=== PATIENT | female | born 1965 | race Caucasian/White ===

== ENCOUNTER 2017-04-20 23:48 | Observation (INO) | payer OTHER ==
[~2017-04-20] VITALS: Ht 170.2 cm; Wt 102.3 kg
[~2017-04-20 23:48] MED LIST: ADVA500A INH; ALBU1TAB2 PO; AMIO200T PO; ASPI81TA81; CARV3.12 PO; ENAL2.5T PO; HYDR-3533 PO; LEVO25TA4 PO; METF500T PO; SPIR25TA PO; SPIRCAP INH; TAMO20TA6 PO
[2017-04-21] VITALS (9 sets, daily range): BP systolic 106–138; BP diastolic 55–86; PULSE 68–80; RESP 14–20; TEMP 97.3–98.3; O2SAT 96–99
[2017-04-21] MEDS ORDERED: MAGN400T2 PO ×2 (00:11→17:14)
[2017-04-21] MEDS ORDERED: CHOL1CAP14 PO (00:11)
[2017-04-21] MEDS ORDERED: FERR325C PO (00:11)
[2017-04-21] MEDS ORDERED: ALBUAER3 INH (00:11)
[2017-04-21] MEDS ORDERED: SYMB160A INH (00:11)
[2017-04-21] MEDS ORDERED: CYAN1TAB24 (00:11)
[2017-04-21] MEDS ORDERED: SODIUM CHLORIDE 0.9% FLUSH 10 ML FLUSH IVF PRN (00:15)
[2017-04-21 00:57] LABS: AUTOMATED NEUTROPHIL # 5.9 TH/MM3 (1.8-7.7); BASOPHIL % 0.5 % (0.0-2.0); EOSINOPHIL # 0.2 TH/MM3 (0-0.4); EOSINOPHIL % 1.8 % (0.0-4.0); HEMATOCRIT 35.8 % (35.0-46.0); LYMPH % 30.2 % (9.0-44.0); LYMPHOCYTE # 2.9 TH/MM3 (1.0-4.8); MEAN CELL VOLUME 81.8 FL (80.0-100.0); MEAN CORPUSCULAR HEMOGLOBIN 26.1 PG (27.0-34.0); MEAN CORPUSCULAR HGB CONC 31.9 % (32.0-36.0); MONO % 7.4 % (0.0-8.0); NEUT % 60.1 % (16.0-70.0); PLATELET COUNT 246 TH/MM3 (150-450); RED BLOOD COUNT 4.38 MIL/MM3 (4.00-5.30); RED CELL DISTRIBUTION WIDTH 14.3 % (11.6-17.2); WHITE BLOOD COUNT 9.7 TH/MM3 (4.0-11.0)
[2017-04-21 00:59] LABS: HEMO FLAGS DIFF FINAL
[2017-04-21 01:08] LABS: CHLORIDE 103 MEQ/L (98-107); POTASSIUM 3.9 MEQ/L (3.5-5.1); SODIUM (NA) 137 MEQ/L (136-145)
[2017-04-21 01:11] LABS: ANION GAP 8 MEQ/L (5-15); BLOOD UREA NITROGEN 28 MG/DL (7-18); MAGNESIUM 1.2 MG/DL (1.5-2.5)
--- NOTE | 2017-04-21 01:12 | PD ---
HPI Chief Complaint: Syncope/Near-Syncope Time Seen by Provider: 00:06 Travel History International Travel<30 days: No Contact w/Intl Traveler<30days: No Traveled to known affect area: No History of Present Illness HPI 51-year-old female with a history of an AICD placed in July 2012 at [facility] arrives as the AICD discharged when she was at home just prior to ER arrival. Patient was in her kitchen and fell to the ground having lost consciousness for seconds. She complains of left ankle pain and left shoulder pain. She reports palpitations earlier in the day and some chest heaviness earlier in the day. At the time of ER evaluation she has no specific complaint. Denies change in medication recently. No recent illness reported. The patient does not know the brand or model of the AICD. 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 PFSH Past Medical History Hx Anticoagulant Therapy: Yes Asthma: Yes Cancer: Yes (RIGHT BREAST CANCER) Cardiac Catheterization: Yes Cardiovascular Problems: Yes Chemotherapy: Yes Cerebrovascular Accident: No Coronary Artery Disease: Yes Diabetes: Yes Diminished Hearing: No Glaucoma: No Genitourinary: No Hepatitis: No Hiatal Hernia: No Hypertension: No Musculoskeletal: No Neurologic: No Reproductive: No Respiratory: Yes Integumentary: Yes (BOIL I&D RIGHT BREAST) Immunizations Current: Yes Radiation Therapy: Yes (IN 2008) Thyroid Disease: No PNEUMOCCOCAL Vaccine (Year): 2 : 3 Para: 3 Past Surgical History Abdominal Surgery: No Cardiac Surgery: No Section: Yes (X 3) Coronary Artery Bypass Graft: Yes Ear Surgery: No Endocrine Surgery: No Eye Surgery: No Genitourinary Surgery: No Hysterectomy: No Mastectomy: Yes (CASSANDRA) Oral Surgery: Yes (T&A) Pacemaker: No Thoracic Surgery: No Tonsillectomy: Yes Other Surgery: Yes (CASSANDRA. MASTECTOMY IN 2008) Social History Alcohol Use: No Tobacco Use: No Substance Use: No Allergies-Medications (Allergen,Severity, Reaction): Coded Allergies: Penicillin (Verified Allergy, Severe, RASH, 04/21/17) Reported Meds & Prescriptions Reported Meds & Active Scripts Active Reported Symbicort Inh (Budesonide/Formoterol Fumarate) 160-4.5 Mcg/Act Aero 2 Puff INH Q12HR Proair Hfa 8.5 GM Inh (Albuterol Sulfate) 90 Mcg/Act Aer 2 Puff INH Q4-6H PRN 108 mcg/actuation B12 (Cyanocobalamin) 1,000 Mcg Tab D3 Maximum Strength (Cholecalciferol) 5,000 Unit Cap 1,000 Units PO DAILY Iron (Ferrous Sulfate) 325 Mg Cap 65 Mg PO DAILY Magnesium Oxide 400 Mg Tab 400 Mg PO DAILY Amiodarone (Amiodarone HCl) 200 Mg Tab 200 Mg PO DAILY Aspir-81 (Aspirin) 81 Mg Tabdr 81 DAILY Carvedilol 3.125 Mg Tab 3.125 Mg PO BID Enalapril (Enalapril Maleate) 2.5 Mg Tab 2.5 Mg PO DAILY Spironolactone 25 Mg Tab 25 Mg PO DAILY Tamoxifen (Tamoxifen Citrate) 20 Mg Tab 20 Mg PO DAILY Metformin (Metformin HCl) 500 Mg Tab 500 Mg PO TIDPC With meals Review of Systems Except as stated in HPI: all other systems reviewed are Neg General / Constitutional: No: Fever Physical Exam Narrative GENERAL: 51 yo F, NAD, speaking full sentences SKIN: Warm and dry. HEAD: Atraumatic. Normocephalic. EYES: Pupils equal and round. No scleral icterus. No injection or drainage. ENT: No nasal bleeding or discharge. Mucous membranes pink and moist. NECK: Trachea midline. No JVD. CARDIOVASCULAR: Regular rate and rhythm. Left anterior chest wall AICD packet non-tender without overlying skin changes. RESPIRATORY: No accessory muscle use. Clear to auscultation. Breath sounds equal bilaterally. GASTROINTESTINAL: Abdomen soft, non-tender, nondistended. Hepatic and splenic margins not palpable. MUSCULOSKELETAL: Extremities without clubbing, cyanosis, or edema. No obvious deformities. TTP L lateral malleolus NEUROLOGICAL: Awake and alert. No obvious cranial nerve deficits. Motor grossly within normal limits. Five out of 5 muscle strength in the arms and legs. Normal speech. PSYCHIATRIC: Appropriate mood and affect; insight and judgment normal. Data Data Last Documented VS Vital Signs Date Time Temp Pulse Resp B/P Pulse Ox O2 Delivery O2 Flow Rate FiO2 04/21/17 02:50 98.3 72 15 118/60 97 Room Air Orders Electrocardiogram (04/21/17 00:07) Basic Metabolic Panel (Bmp) (04/21/17 00:07) Complete Blood Count With Diff (04/21/17 00:07) Magnesium (Mg) (04/21/17 00:07) Ecg Monitoring (04/21/17 00:07) Iv Access Insert/Monitor (04/21/17 00:07) Oximetry (04/21/17 00:07) Oxygen Administration (04/21/17 00:07) Sodium Chloride 0.9% Flush (Ns Flush) (04/21/17 00:15) Chest, Single Ap (04/21/17 00:33) Foot, Complete ([id number]) (04/21/17 ) B-Type Natriuretic Peptide (04/21/17 01:18) Magnesium Oxide (Mag-Ox) (04/21/17 01:30) Alcohol (Ethanol) (04/21/17 00:47) Creatine Kinase (Cpk) (04/21/17 00:47) Troponin I (04/21/17 00:47) Place In Observation (04/21/17 ) Vital Signs (Adult) Q4H (04/21/17 03:38) Activity Oob With Assistance (04/21/17 03:38) Supervisor Cigar Processing / Telemetry .CONTINUOUS (04/21/17 03:38) Intake + Output WARREN.QSHIFT (04/21/17 03:38) Diet 1800 Ada Cons Carb (04/21/17 Breakfast) Sodium Chlor 0.9% 1000 Ml Inj (Ns 1000 M (04/21/17 03:38) Sodium Chloride 0.9% Flush (Ns Flush) (04/21/17 03:45) Sodium Chloride 0.9% Flush (Ns Flush) (04/21/17 09:00) Ondansetron Inj (Zofran Inj) (04/21/17 03:45) Comprehensive Metabolic Panel (04/22/17 06:00) Complete Blood Count With Diff (04/22/17 06:00) Troponin I (04/21/17 09:00) Troponin I (04/21/17 15:00) Scd Bilateral/Knee High WARREN.BID (04/21/17 03:38) Juan Jose Bilateral/Knee High WARREN.QSHIFT (04/21/17 03:38) Acetaminophen (Tylenol) (04/21/17 03:45) Acetamin-Hydrocod 325-5 Mg ([place] 5-325 (04/21/17 03:45) Morphine Inj (Morphine Inj) (04/21/17 03:45) Docusate Sodium-Senna (Brenna-Colace) (04/21/17 09:00) Magnesium Hydroxide Liq (Milk Of Magnesi (04/21/17 03:45) Sennosides (Senokot) (04/21/17 03:45) Bisacodyl Supp (Dulcolax Supp) (04/21/17 03:45) Admit Order (Ed Use Only) (04/21/17 03:38) Lactulose Liq (Lactulose Liq) (04/21/17 03:45) Consult Cardiology (04/21/17 ) Sodium Chlor 0.9% 1000 Ml Inj (Ns 1000 M (04/21/17 03:45) Albuterol Hfa Inh (Proair Hfa Inh) (04/21/17 03:45) Amiodarone (Cordarone) (04/21/17 09:00) Budeson-Formot 160-4.5 Mg Inh (Symbicort (04/21/17 09:00) Carvedilol (Coreg) (04/21/17 09:00) Magnesium Oxide (Mag-Ox) (04/21/17 09:00) Tamoxifen (Nolvadex) (04/21/17 09:00) Ferrous Sulfate (Ferrous Sulfate) (04/21/17 09:00) Labs Laboratory Tests Test 04/21/17 00:47 White Blood Count 9.7 TH/MM3 Red Blood Count 4.38 MIL/MM3 Hemoglobin 11.4 GM/DL Hematocrit 35.8 % Mean Corpuscular Volume 81.8 FL Mean Corpuscular Hemoglobin 26.1 PG Mean Corpuscular Hemoglobin 31.9 % Concent Red Cell Distribution Width 14.3 % Platelet Count 246 TH/MM3 Mean Platelet Volume 6.6 FL Neutrophils (%) (Auto) 60.1 % Lymphocytes (%) (Auto) 30.2 % Monocytes (%) (Auto) 7.4 % Eosinophils (%) (Auto) 1.8 % Basophils (%) (Auto) 0.5 % Neutrophils # (Auto) 5.9 TH/MM3 Lymphocytes # (Auto) 2.9 TH/MM3 Monocytes # (Auto) 0.7 TH/MM3 Eosinophils # (Auto) 0.2 TH/MM3 Basophils # (Auto) 0.0 TH/MM3 CBC Comment DIFF FINAL Differential Comment Sodium Level 137 MEQ/L Potassium Level 3.9 MEQ/L Chloride Level 103 MEQ/L Carbon Dioxide Level 26.0 MEQ/L Anion Gap 8 MEQ/L Blood Urea Nitrogen 28 MG/DL Creatinine 0.95 MG/DL Estimat Glomerular Filtration 62 ML/MIN Rate Random Glucose 208 MG/DL Calcium Level 8.6 MG/DL Magnesium Level 1.2 MG/DL Total Creatine Kinase 73 U/L Troponin I LESS THAN 0.02 NG/ML B-Type Natriuretic Peptide 135 PG/ML Ethyl Alcohol Level LESS THAN 3 MG/DL MDM Medical Decision Making Medical Screen Exam Complete: Yes Emergency Medical Condition: Yes Medical Record Reviewed: Yes Differential Diagnosis Arrhythmia, electrolyte imbalance, anemia, AICD parameter abnormality, fracture of the AICD wires Narrative Course EKG: sinus, rate 76, LVH noted CBC & BMP Diagram 04/21/17 00:47 BNP 135 Magnesium 1.2 troponin less than 0.02 alcohol < 3 Documentation from outside hospital reveals the patient has a [employer]tronic Protecta XT DR model R019MDM dual-chamber defibrillator, #[id number]. [employer] was called at 2:05 AM and the tech will come to the ER for interrogation. Patient was found resting comfortably at that time. ACID interrogation reveals multiple episodes of V fib, one lasting 14 seconds which led to discharge. Multiple additional episodes over the past few days also reported, lasting 2 seconds to 9 seconds, none of which lead to defibrillation. Case d/w Dr Chen for [facility]. Case d/w Dr Spivey, cardiology, who advises admission with 2 sets enzymes, magnesium repletion and service cardiology consult. Plan d/w pt who is agreeable with plan. Diagnosis Primary Impression: AICD discharge Additional Impressions: Hypomagnesemia Dehydration Go Salazar MD Apr 21, 2017 01:12
[2017-04-21 01:14] LABS: GLOMERULAR FILTRATION RATE 62 ML/MIN (>89)
[2017-04-21] MEDS ORDERED: MAGNESIUM OXIDE 400 MG TAB PO ONE ×2 (01:30→18:00)
[2017-04-21 01:35] LABS: CREATINE KINASE 73 U/L (26-192)
--- NOTE | 2017-04-21 01:54 | RADRPT ---
EXAM DATE/TIME: 04/21/2017 00:44 [facility] COMPARISON: CHEST SINGLE AP, November 30, 2014, 1:09. INDICATIONS : Chest pain. MEDICAL HISTORY : Carcinoma, breast. Myocardial infarction. SURGICAL HISTORY : Pacemaker. Mastectomy, bilateral ENCOUNTER: Initial ACUITY: 1 day PAIN SCORE: 5/10 LOCATION: Bilateral chest FINDINGS: The cardiac silhouette is enlarged in transverse diameter. The lungs are free of acute parenchymal op acity. No effusions are identified. A defibrillator device is in place via a left sided approach. CONCLUSION: 1. Cardiomegaly. No acute pulmonary disease. Mansoor Mcdaniel MD on April 21, 2017 at 1:53 Board Certified Radiologist. This report was verified electronically.
--- NOTE | 2017-04-21 01:59 | RADRPT ---
EXAM DATE/TIME: 04/21/2017 01:10 [facility] COMPARISON: No previous studies available for comparison. INDICATIONS : Left lateral foot pain post fall. MEDICAL HISTORY : Carcinoma, breast. Myocardial infarction SURGICAL HISTORY : Pacemaker. Mastectomy, bilateral. ENCOUNTER: Initial ACUITY: 1 day PAIN SCORE: 8/10 LOCATION: Left lateral foot FINDINGS: Three view examination of the left foot demonstrates no soft tissue swelling, dislocation, or fractur e. The tarsal bones appear intact. The interphalangeal and metatarsophalangeal joints are intact. The calcaneus is intact. Bony mineralization is normal. CONCLUSION: 1. There is no evidence of acute fracture. Mansoor Mcdaniel MD on April 21, 2017 at 1:56 Board Certified Radiologist. This report was verified electronically.
[2017-04-21] MEDS ORDERED: ACETAMINOPHEN/HYDROcodone 325 MG/5 MG TAB PO PRN (03:45)
[2017-04-21] MEDS ORDERED: SENNOSIDES 8.6 MG TAB PO PRN (03:45)
[2017-04-21] MEDS ORDERED: ALBUTEROL SULFATE 90 MCG/ACT HFA 8 GM INHALER INH PRN (03:45)
[2017-04-21] MEDS ORDERED: ACETAMINOPHEN/HYDROcodone 325 MG/5 MG TAB PO ONE (03:45)
[2017-04-21] MEDS ORDERED: MORPHINE SULFATE 4 MG/ML INJ IV PRN (03:45)
[2017-04-21] MEDS ORDERED: LACTULOSE SYRUP 20 GM/30 ML CUP PO PRN (03:45)
[2017-04-21] MEDS ORDERED: SODIUM CHLOR 0.9% 1000 ML INJ 1,000 ML IV ONE (03:45)
[2017-04-21] MEDS ORDERED: SODIUM CHLORIDE 0.9% FLUSH 10 ML FLUSH IV FLUSH PRN (03:45)
[2017-04-21] MEDS ORDERED: ACETAMINOPHEN 325 MG TAB PO PRN (03:45)
[2017-04-21] MEDS ORDERED: BISACODYL 10 MG SUPP RECTAL PRN (03:45)
[2017-04-21] MEDS ORDERED: ONDANSETRON HCL 4 MG/2 ML VIAL IVP PRN (03:45)
[2017-04-21] MEDS ORDERED: MAGNESIUM HYDROXIDE SUSP 30 ML CUP PO PRN (03:45)
[2017-04-21] MEDS ORDERED: ALBUTEROL SULFATE 90 MCG/ACT HFA 18 GM INHALER INH PRN (03:52)
[2017-04-21] MEDS: SODIUM CHLOR 0.9% 1000 ML INJ 1,000 ML IV SCH ×2 (04:15→13:38)
[2017-04-21] MEDS ORDERED: AMIODARONE 200 MG TAB PO SCH (09:00)
[2017-04-21] MEDS ORDERED: CARVEDILOL 3.125 MG TAB PO SCH (09:00)
[2017-04-21] MEDS ORDERED: SODIUM CHLORIDE 0.9% FLUSH 10 ML FLUSH IV FLUSH SCH (09:00)
[2017-04-21] MEDS ORDERED: TAMOXIFEN CITRATE 10 MG TAB PO SCH (09:00)
[2017-04-21] MEDS ORDERED: DOCUSATE SODIUM 50 MG/SENNA 8.6 MG TAB PO SCH (09:00)
[2017-04-21] MEDS ORDERED: BUDESONIDE-FORMOTEROL 160/4.5 MCG INHALER INH SCH (09:00)
[2017-04-21] MEDS ORDERED: MAGNESIUM OXIDE 400 MG TAB PO SCH (09:00)
[2017-04-21] MEDS ORDERED: FERROUS SULFATE 325 MG (65 MG ELEMENTAL IRON) TAB PO SCH (09:00)
--- NOTE | 2017-04-21 10:19 | HHI.HP ---
[facility] Braulio Simon MD Admission Diagnosis VFib Event, AICD Defibrillation, HypoMg Diagnoses: (1) Syncope Diagnosis: Principal (2) Ventricular fibrillation Diagnosis: Principal (3) AICD discharge Diagnosis: Principal Chief Complaint: Syncope Travel History International Travel<30 Days: No Contact w/Intl Traveler <30 Da: No Traveled to Known Affected Are: No History of Present Illness Written by Moustapha Sawant, acting as scribe for Dr. Ugalde on 04/21/17 at 09: 54. 51-year-old female rather significant cardiac history with myocardial infarction, cardiomyopathy, pacemaker/AICD, chronic systolic congestive heart failure, history of breast cancer, diabetes, obstructive sleep apnea who presented to the hospital because of syncopal episode. Patient states that over the last couple days she has had some significant cardiac symptoms with feeling like her heart is racing and associated discomfort in her chest from where she has to lean forward and steady herself and do rapid breathing until the discomfort went away. She states that is been happening mainly whenever she sits down. Whenever she gets up and walks around the discomfort does not happen. However when she was in the kitchen yesterday she developed a sensation and she grabbed the counter and did her rapid breathing, however next thing she knows she " dropped like a hot potato" and her son was frantically trying to wake get her up. Because of this reason patient came to the hospital for evaluation. Patient had interrogation done of her AICD and was found to have an episode of ventricular fibrillation that lasted 14 seconds that led to an AICD discharge, there were additional episodes over the last few days reporting lasting anywhere from 29 seconds which did not lead to defibrillation. Because of that reason the patient was recommended observation the hospital with cardiology consultation. Patient hasn't had any episodes since being in the hospital. When the patient syncopized yesterday she did hit the back of her head as well as had a sore left shoulder and left ankle. X-ray the ankle was performed which did not indicate any acute abnormality. Patient denies any nausea, vomiting, lightheadedness, dizziness, shortness of breath, dyspnea, diaphoresis. Review of Systems Cardiovascular: COMPLAINS OF: Palpitations, Syncope Except as stated in HPI: all other systems reviewed are Neg Past Family Social History Past Medical History History myocardial infarction Coronary artery disease Cardiomyopathy Chronic systolic congestive heart failure Diabetes Obstructive sleep apnea History tobacco use History of breast cancer Possible underlying hypothyroidism/thyroid mass/goiter Past Surgical History Tonsillectomy Cardiac catheterization AICD placement Bilateral mastectomy Colonoscopy Reported Medications Reported Meds & Active Scripts Active Reported Symbicort Inh (Budesonide/Formoterol Fumarate) 160-4.5 Mcg/Act Aero 2 Puff INH Q12HR Proair Hfa 8.5 GM Inh (Albuterol Sulfate) 90 Mcg/Act Aer 2 Puff INH Q4-6H PRN 108 mcg/actuation B12 (Cyanocobalamin) 1,000 Mcg Tab D3 Maximum Strength (Cholecalciferol) 5,000 Unit Cap 1,000 Units PO DAILY Iron (Ferrous Sulfate) 325 Mg Cap 65 Mg PO DAILY Magnesium Oxide 400 Mg Tab 400 Mg PO DAILY Amiodarone (Amiodarone HCl) 200 Mg Tab 200 Mg PO DAILY Aspir-81 (Aspirin) 81 Mg Tabdr 81 DAILY Carvedilol 3.125 Mg Tab 3.125 Mg PO BID Enalapril (Enalapril Maleate) 2.5 Mg Tab 2.5 Mg PO DAILY Spironolactone 25 Mg Tab 25 Mg PO DAILY Tamoxifen (Tamoxifen Citrate) 20 Mg Tab 20 Mg PO DAILY Metformin (Metformin HCl) 500 Mg Tab 500 Mg PO TIDPC With meals Allergies: Coded Allergies: Penicillin (Verified Allergy, Severe, RASH, 04/21/17) Family History Reviewed is significant for father having coronary disease and diabetes. Mother was healthy. Social History Patient with smoking 12 years ago, prior to that she smoked up to a pack a cigarettes a day for 30 years. She denies any alcohol or illicit drugs Physical Exam Vital Signs Vital Signs Date Time Temp Pulse Resp B/P Pulse Ox O2 Delivery O2 Flow Rate FiO2 04/21/17 08:00 97.7 72 18 117/62 98 04/21/17 05:11 97.3 76 18 134/86 98 04/21/17 04:51 68 04/21/17 04:33 98.2 72 17 138/66 97 04/21/17 03:45 74 18 115/59 99 Room Air 04/21/17 02:50 98.3 72 15 118/60 97 Room Air 04/21/17 01:51 76 16 111/55 97 Room Air 04/21/17 01:02 98.3 77 14 126/72 96 Room Air 04/20/17 23:55 Room Air Physical Exam GENERAL: Well-developed, well-nourished. alert and orientated HEENT: Head is normocephalic without any lesions or masses noted. Facial features are symmetric. Eyes: Pupils equal round reactive to light. Extraocular muscles are intact. Conjunctivae were clear. Oropharyngeal: Pharynx without any erythema edema. Tongue is midline without deviation. Buccal mucosa is moist without any masses or lesions NECK: Supple without any masses. Trachea midline no deviation. No JVD, no bruits are appreciated CARDIAC: Regular rhythm, regular rate. No murmurs LUNGS: Clear to auscultation bilaterally. No wheeze, rhonchi or rales. No use of accessory muscles on inspiration or expiration. ABDOMEN: Soft, non tender. Nondistended. Bowel sounds heard in all 4 quadrants. No organomegaly or masses. Negative rebound, negative guarding EXTREMITIES: No edema, pulses are equal bilaterally. NEUROLOGY: Mood and affect appear appropriate. Cranial nerves II through XII grossly intact. Muscle strength 5/5 in upper and lower extremities bilaterally. Laboratory Laboratory Tests Test 04/21/17 04/21/17 00:47 08:45 White Blood Count 9.7 Red Blood Count 4.38 Hemoglobin 11.4 Hematocrit 35.8 Mean Corpuscular Volume 81.8 Mean Corpuscular Hemoglobin 26.1 Mean Corpuscular Hemoglobin 31.9 Concent Red Cell Distribution Width 14.3 Platelet Count 246 Mean Platelet Volume 6.6 Neutrophils (%) (Auto) 60.1 Lymphocytes (%) (Auto) 30.2 Monocytes (%) (Auto) 7.4 Eosinophils (%) (Auto) 1.8 Basophils (%) (Auto) 0.5 Neutrophils # (Auto) 5.9 Lymphocytes # (Auto) 2.9 Monocytes # (Auto) 0.7 Eosinophils # (Auto) 0.2 Basophils # (Auto) 0.0 CBC Comment DIFF FINAL Differential Comment Sodium Level 137 Potassium Level 3.9 Chloride Level 103 Carbon Dioxide Level 26.0 Anion Gap 8 Blood Urea Nitrogen 28 Creatinine 0.95 Estimat Glomerular Filtration 62 Rate Random Glucose 208 Calcium Level 8.6 Magnesium Level 1.2 Total Creatine Kinase 73 Troponin I LESS THAN 0.02 0.03 B-Type Natriuretic Peptide 135 Ethyl Alcohol Level LESS THAN 3 Result Diagram: 04/21/17 0047 04/21/17 0047 Imaging Last Impressions Chest X-Ray 04/21/17 0033 Signed Impressions: Service Date/Time: Friday, April 21, 2017 00:44 - CONCLUSION: 1. Cardiomegaly. No acute pulmonary disease. Mansoor Mcdaniel MD Foot X-Ray 04/21/17 0000 Signed Impressions: Service Date/Time: Friday, April 21, 2017 01:10 - CONCLUSION: 1. There is no evidence of acute fracture. Mansoor Mcdaniel MD Assessment and Plan Assessment and Plan Ventricular fibrillation status post AICD firing, who presented with syncope AICD was interrogated which did indicate 14 second run of ventricular fibrillation status post AICD firing Continue telemetry monitoring Resume home medications to include Coreg, amiodarone Cardiology consultation was requested Continue trending cardiac enzymes, thus far they have remained negative Hypomagnesemia Replace and continue to monitor Hypertension, cardiomyopathy, history myocardial infarction Resume home medications Diabetes Accu-Cheks with sliding scale insulin Left ankle pain/left shoulder pain status post fall X-rays do not indicate acute abnormality Advised outpatient follow-up DVT prevention Sequential compression devices This note was transcribed by les Sawant. I, Dr. Richa Ugalde personally performed the history, physical exam, and medical decision making; and confirmed the accuracy of the information in the transcribed note. Authenticated by Dr. Richa Ugalde on 04/21/17 at 0954. 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
--- NOTE | 2017-04-21 13:56 | EKG ---
Date Performed: 04/20/2017 Time Performed: 23:59:51 PTAGE: 51 years EKG: Sinus rhythm POSSIBLE LEFT ATRIAL ENLARGEMENT POSSIBLE LEFT VENTRICULAR HYPERTROPHY NONSPECIFIC T-WAVE ABNORMALIT Y Since previous tracing, no significant change noted ABNORMAL ECG PREVIOUS TRACING : 11/30/2014 00.37 DOCTOR: Jame Devine Interpretating Date/Time 04/21/2017 13:55:12
--- NOTE | 2017-04-21 16:31 | MB ---
cc: KELSIE LARSON MD DATE OF CONSULTATION: 04/21/2017. REASON FOR CONSULTATION: ASD shock. HISTORY OF PRESENT ILLNESS: The patient is a pleasant 51-year-old woman who sees my partner, Dr. Spivey, for a history of what sounds like a nonischemic cardiomyopathy in the presence of a defibrillator. The patient was in her usual state of good health until yesterday when she began having some intermittent sensations of anxiety and palpitations. Yesterday she felt as if her "heart was going to beat out of my chest" and then she suffered a defibrillator shock, which prompted her to go to the emergency room. She was admitted and is now asymptomatic. She denies any chest pain, shortness of breath or other lightheadedness, dizziness. PAST MEDICAL HISTORY: As above. CURRENT MEDICATIONS: 1. Amiodarone 200 milligrams daily. 2. Coreg 3.125 milligrams twice a day. ALLERGIES: PENICILLIN. PHYSICAL EXAMINATION: VITAL SIGNS: Afebrile, pulse 72, respiratory rate 18, blood pressure 115/53, satting 98% on room air. GENERAL: A pleasant obese woman in no distress. NECK: No jugular venous distention. LUNGS: Clear to auscultation bilaterally. CARDIOVASCULAR: Regular rate and rhythm. No murmurs appreciated. ABDOMEN: Benign. EXTREMITIES: Trace edema bilaterally. LABORATORY DATA: White count 9.7, hematocrit 35.8, platelet count 246,000. Sodium 137, potassium 3.9, chloride 103, bicarbonate 26.0, BUN 28, creatinine 0.95, glucose 208. Cardiac enzymes are negative. BNP is 135. Magnesium was low at 1.2. EKGS: EKG showed sinus rhythm with left ventricular hypertrophy and no acute S-T or T wave changes. Defibrillator interrogation note was notable for a sustained episode of ventricular tachycardia at about 315 beats per minute which was successfully defibrillated with a 35 joule shock. There were several other short episodes of nonsustained ventricular tachycardia. IMPRESSION: 1. Defibrillator shock: The patient underwent a successful defibrillator shock for ventricular tachycardia. I think she has enough blood pressure to tolerate increasing her carvedilol to 6.25 milligrams twice a day. Given the isolated shock, I think it is reasonable for her to be discharged home once her electrolytes have been replaced and she can follow up with Dr. Spivey. She is advised to return back to the emergency room if she has any other shocks in the immediate future. The patient tells me that she has been well worked up by Dr. Spivey including negative ischemic workup and thus I will not repeat that here and she will follow up with Dr. Spivey. Thank you again for the opportunity to participate in this patient's care. MD LANE [place]/JAIME /4:14 PM /4:18 PM
[2017-04-21] MEDS ORDERED: CARV6.25 PO (17:14)
[2017-04-21] MEDS ORDERED: CARVEDILOL 6.25 MG TAB PO SCH (21:00)
== END 2017-04-21 19:17 | disposition home or self-care (01) ==
LOC: PHED 23:48 → PHEDA 04-21 03:42 → PH3A 04-21 04:37
PROVIDERS: ADMIT Hospitalist; ATTEND Hospitalist
DX: T82.198A Other mechanical complication of other cardiac electronic device, initial encounter (principal); Y83.8 Other surgical procedures as the cause of abnormal reaction of the patient, or of later complication, without mention of misadventure at the time of the procedure; R55 Syncope and collapse; E83.42 Hypomagnesemia; E86.0 Dehydration; M25.572 Pain in left ankle and joints of left foot; M25.512 Pain in left shoulder; W19.XXXA Unspecified fall, initial encounter; I49.01 Ventricular fibrillation; I11.0 Hypertensive heart disease with heart failure; I50.22 Chronic systolic (congestive) heart failure; R94.31 Abnormal electrocardiogram [ECG] [EKG]; E11.9 Type 2 diabetes mellitus without complications; I25.10 Atherosclerotic heart disease of native coronary artery without angina pectoris; I42.9 Cardiomyopathy, unspecified; I25.2 Old myocardial infarction; G47.33 Obstructive sleep apnea (adult) (pediatric); E66.9 Obesity, unspecified; Z68.35 Body mass index [BMI] 35.0-35.9, adult; Z92.3 Personal history of irradiation; Z90.13 Acquired absence of bilateral breasts and nipples; Z85.3 Personal history of malignant neoplasm of breast; Z87.891 Personal history of nicotine dependence; Z79.84 Long term (current) use of oral hypoglycemic drugs; Z79.82 Long term (current) use of aspirin; Z79.51 Long term (current) use of inhaled steroids; Z79.899 Other long term (current) drug therapy
CPT/HCPCS: 71010; 73630; 80048; 80307; 82550; 83735; 83880; 84443; 84484; 85025; 93005; 96360; 99285; G0378; J7030